=== PATIENT | male | born 1960 | race African-American/Black ===

== ENCOUNTER 2021-06-07 13:55 | Inpatient (IN) | payer OTHER ==
[2021-06-07 16:12] VITALS: BMI 19.5
[2021-06-07] MEDS ORDERED: ACETAMINOPHEN 325 MG TABLET (FP) PO PRN (18:47)
[2021-06-07] MEDS ORDERED: LOPERAMIDE HCL 2 MG CAPSULE PO PRN (18:47)
[2021-06-07] MEDS ORDERED: MAG HYDROX/AL HYDROX/SIMETH 30 ML UNIT-DOSE CUP PO PRN (18:47)
[2021-06-07] MEDS ORDERED: guaiFENesin 200 MG/10 ML 10 ML UNIT-DOSE CUPS PO PRN (18:47)
[2021-06-07] MEDS ORDERED: hydrOXYzine PAMOATE 25 MG CAPSULE (FP) PO PRN (18:47)
[2021-06-07] MEDS ORDERED: IBUPROFEN 400 MG TABLET (FP) PO PRN (18:47)
[2021-06-07] MEDS ORDERED: MAGNESIUM CITRATE 300 ML BOTTLE PO PRN (18:47)
[2021-06-07] MEDS ORDERED: MAGNESIUM HYDROX 2400MG/30ML ORAL SUSPENSION 30 ML CUP PO PRN (18:47)
[2021-06-07] MEDS ORDERED: P-EPHED 60MG/TRIPROLIDI 2.5MG TABLET PO PRN (18:47)
[2021-06-07] MEDS ORDERED: NICOTINE 10 MG CARTRIDGE (INHALER) IH PRN (18:47)
[2021-06-07] MEDS: MELATONIN 5 MG TABLETS PO SCH (21:51)
[2021-06-07] MEDS: THIAMINE HCL 100 MG TABLET (FP) PO SCH (21:51)
[2021-06-08 06:51] VITALS: TEMP 98
[2021-06-08] MEDS: TAMSULOSIN HCL 0.4 MG CAP PO SCH (09:30)
[2021-06-08] MEDS: PRENATAL VITAMINS W/ FOLIC ACID TABLET (FP) PO SCH (09:32)
[2021-06-08 11:05] LABS: HEMATOCRIT 39.6 % (35.4-49); HEMOGLOBIN 13.3 GM/dL (11.7-16.9); MCH 33.4 pg (25.7-33.7); MCHC 33.6 g/dl (32.0-35.9); MEAN CELL VOLUME 99.3 fl (80-96); MEAN PLT VOLUME 7.9 fl (7.5-11.1); PLATELET COUNT 302 10^3/uL (134-434); RBC 3.99 M/mm3 (4.00-5.60); RDW 13.1 % (11.9-15.9); WHITE BLOOD COUNT 9.7 K/mm3 (4.0-10.0)
[2021-06-08 11:21] LABS: ALBUMIN 3.2 g/dl (3.4-5.0); CALCIUM 8.7 mg/dL (8.5-10.1)
[2021-06-08 11:22] LABS: BLOOD UREA NITROGEN 13.6 mg/dL (7-18)
[2021-06-08 11:24] LABS: BILIRUBIN,TOTAL 0.4 mg/dL (0.2-1)
[2021-06-08 11:25] LABS: CREATININE 0.9 mg/dL (0.55-1.3)
[2021-06-08 11:27] LABS: TOT PROT 6.6 g/dl (6.4-8.2)
[2021-06-09] MEDS: MELATONIN 5 MG TABLETS PO SCH ×2 (00:03→22:19)
[2021-06-09] MEDS: THIAMINE HCL 100 MG TABLET (FP) PO SCH ×2 (00:03→22:19)
[2021-06-09] MEDS: TAMSULOSIN HCL 0.4 MG CAP PO SCH (07:49)
[2021-06-09 09:30] VITALS: BP 99/66; PULSE 64
[2021-06-09] MEDS: PRENATAL VITAMINS W/ FOLIC ACID TABLET (FP) PO SCH (09:33)
== END 2021-06-09 20:28 | disposition left against medical advice (07) | DRG 770 ==
LOC: YASAS 13:55 → Y3E 17:46
PROVIDERS: ADMIT Allergy & Immunology; ATTEND Allergy & Immunology
PROC: HZ42ZZZ Group Counseling for Substance Abuse Treatment, Cognitive-Behavioral (ICD-10-PCS; principal; 2021-06-07)
DX: F10.20 Alcohol dependence, uncomplicated (principal); F14.20 Cocaine dependence, uncomplicated; F17.210 Nicotine dependence, cigarettes, uncomplicated; M54.5 Low back pain; G89.29 Other chronic pain
CPT/HCPCS: 36415; 71046-TC-FY; 80053; 85027; 86593; 86780; C9803; U0003; U0005